=== PATIENT | female | born 1990 | race Caucasian/White ===

== ENCOUNTER 2016-06-02 12:23 | Outpatient (CLI) | payer OTHER | END 2016-06-02 12:24 | disposition home or self-care (01) | DX: D50.9 Iron deficiency anemia, unspecified (principal) ==

== ENCOUNTER 2016-09-07 09:25 | Outpatient (CLI) | payer OTHER ==
[2016-09-07 14:31] LABS: BASOPHILS # (AUTO) 0.1 10^3/uL (0.0-0.1); BASOPHILS % (AUTO) 1.4 %; EOSINOPHILS # (AUTO) 0.1 10^3/uL (0.0-0.7); EOSINOPHILS % (AUTO) 2.2 %; HCT - HEMATOCRIT 34.9 % (37.0-47.0); HGB - HEMOGLOBIN 11.5 g/dL (12.0-16.0); LYMPHOCYTES # (AUTO) 1.2 10^3/uL (1.5-3.5); LYMPHOCYTES % (AUTO) 26.8 %; MEAN CORPUSCULAR HEMOGLOBIN 27.1 pg (27.0-31.0); MEAN CORPUSCULAR VOLUME 82.3 fL (81.0-99.0); MEAN PLATELET VOLUME 9.3 fL (7.9-10.8); MONOCYTES # (AUTO) 0.3 10^3/uL (0.0-1.0); MONOCYTES % (AUTO) 7.6 %; NEUTROPHILS # (AUTO) 2.8 10^3/uL (1.5-6.6); NUCLEATED RED BLOOD CELLS AUTO 0.1 /100WBC; RED BLOOD COUNT 4.23 10^6/uL (4.20-5.40); RED CELL DISTRIBUTION WIDTH 14.1 % (12.0-15.0); UNCORRECTED WHITE BLOOD COUNT 4.5 x10^3/uL; WHITE BLOOD COUNT 4.5 x10^3/uL (4.8-10.8)
[2016-09-07 14:46] LABS: ALBUMIN/GLOBULIN RATIO 1.5 (1.0-2.2); BILIRUBIN,TOTAL 0.4 mg/dL (0.2-1.0); CALCIUM 9.7 mg/dL (8.5-10.3); CREATININE 0.7 mg/dL (0.4-1.0); POTASSIUM 4.4 mmol/L (3.5-5.0); TOTAL PROTEIN 7.4 g/dL (6.7-8.2)
== END 2016-09-07 09:26 | disposition home or self-care (01) ==
LOC: LAB.WCP 09:25
PROVIDERS: ATTEND Family Medicine
DX: R10.9 Unspecified abdominal pain (principal)
CPT/HCPCS: 36415; 80053; 85025

== ENCOUNTER 2017-06-16 08:00 | Outpatient (CLI) | payer OTHER ==
[2017-06-16 19:07] LABS: BASOPHILS # (AUTO) 0.1 10^3/uL (0.0-0.1); BASOPHILS % (AUTO) 1.3 %; EOSINOPHILS # (AUTO) 0.1 10^3/uL (0.0-0.7); EOSINOPHILS % (AUTO) 2.4 %; HGB - HEMOGLOBIN 10.5 g/dL (12.0-16.0); LYMPHOCYTES # (AUTO) 1.7 10^3/uL (1.5-3.5); MEAN CORPUSCULAR HEMOGLOBIN 27.6 pg (27.0-31.0); MEAN CORPUSCULAR HGB CONC 32.3 g/dL (32.0-36.0); MEAN CORPUSCULAR VOLUME 85.3 fL (81.0-99.0); MEAN PLATELET VOLUME 9.8 fL (7.9-10.8); MONOCYTES # (AUTO) 0.4 10^3/uL (0.0-1.0); MONOCYTES % (AUTO) 8.1 %; NEUTROPHILS # (AUTO) 3.1 10^3/uL (1.5-6.6); NEUTROPHILS % (AUTO) 56.2 %; PLT - PLATELET COUNT 244 10^3/uL (130-450); RED BLOOD COUNT 3.81 10^6/uL (4.20-5.40); WHITE BLOOD COUNT 5.4 x10^3/uL (4.8-10.8)
[2017-06-16 19:22] LABS: THYROID STIMULATING HORMONE 1.11 uIU/mL (0.34-5.60)
[2017-06-16 19:25] LABS: % IRON SATURATION 8 % (20-50); ALBUMIN 4.3 g/dL (3.2-5.5); ALBUMIN/GLOBULIN RATIO 1.6 (1.0-2.2); ALKALINE PHOSPHATASE 42 IU/L (42-121); ALT ALANINE AMINOTRANSFERASE 27 IU/L (10-60); AST ASPARTATE AMINOTRANSFERASE 28 IU/L (10-42); BILIRUBIN,TOTAL 0.4 mg/dL (0.2-1.0); BUN - BLOOD UREA NITROGEN 25 mg/dL (6-20); CALCIUM 8.9 mg/dL (8.5-10.3); CARBON DIOXIDE - CO2 25 mmol/L (21-32); CHLORIDE 102 mmol/L (101-111); CHOL/HDL RATIO 2.1 (<4.4); CHOLESTEROL 149 mg/dL; CREATININE 0.7 mg/dL (0.4-1.0); GFR - MDRD 100 (>89); GLUCOSE 80 mg/dL (70-100); HDL CHOLESTEROL 70 mg/dL; IRON 35 ug/dL (28-170); LDL CHOLESTEROL,CALCULATED 68 mg/dL; SODIUM 134 mmol/L (135-145); TOTAL IRON BINDING CAPACITY 421 ug/dL (250-450); TRANSFERRIN 301 mg/dL (192-382); VLDL CHOLESTEROL 11 mg/dL
[2017-06-16 19:29] LABS: FERRITIN 7.2 ng/mL (11.0-306.8)
== END 2017-06-16 08:01 | disposition home or self-care (01) ==
LOC: LAB.WCP 08:00
PROVIDERS: ATTEND Family Medicine
DX: Z00.00 Encounter for general adult medical examination without abnormal findings (principal); D50.9 Iron deficiency anemia, unspecified
CPT/HCPCS: 36415; 80053; 80061; 82607; 82728; 83540; 83721; 84443; 84466; 85025

== ENCOUNTER 2017-11-22 10:38 | Emergency (ER) | payer OTHER ==
[2017-11-22 11:06] LABS: BILIRUBIN,URINE NEGATIVE (NEGATIVE); GLUCOSE, URINE (UA) NEGATIVE (NEGATIVE); KETONES,URINE (UA) NEGATIVE (NEGATIVE); LEUKOCYTE ESTERASE, URINE NEGATIVE (NEGATIVE); NITRITE,URINE NEGATIVE (NEGATIVE); OCCULT BLOOD,URINE NEGATIVE (NEGATIVE); PH,URINE 6.5 PH (5.0-7.5); PROTEIN,URINE NEGATIVE (NEGATIVE); UROBILINOGEN,URINE 0.2 (NORMAL) E.U./dL (NORMAL)
[2017-11-22 11:08] LABS: CLARITY,URINE CLEAR (CLEAR); HCG UR QUAL NEGATIVE
--- NOTE | 2017-11-22 12:20 | ED Physician Documentation ---
PD HPI FEMALE - Stated complaint Stated Complaint: FEMALE - Chief complaint Chief Complaint: UTI - History obtained from History obtained from: Patient - History of Present Illness Timing - onset: Other (For almost a week she has had urinary frequency and bladder pressure without dysuria, flank pain, or nausea. No foul-smelling discharge or urine or fevers. She at the outset took a course of Macrobid and Diflucan without relief. She does not have frequent UTIs.) Review of Systems Constitutional: denies: Fever, Chills Respiratory: denies: Dyspnea, Cough GI: denies: Abdominal Pain, Nausea, Vomiting, Diarrhea PD PAST MEDICAL HISTORY - Past Medical History Past Medical History: Yes GI: Chronic diarrhea, Ulcerative colitis, Other Psych: None Musculoskeletal: None - Past Surgical History Past Surgical History: No - Present Medications Home Medications: Ambulatory Orders Medication Instructions Recorded Confirmed Metronidazole [Flagyl] 500 mg PO BID #14 tablet 11/22/17 Nitrofurantoin [Macrobid] 1 tab PO BID 11/22/17 11/22/17 - Allergies Allergies/Adverse Reactions: Allergies Allergy/AdvReac Type Severity Reaction Status Date / Time cefaclor [From Ceclor] Allergy Mild Rash Verified 11/22/17 10:50 - Social History Does the pt smoke?: No Smoking Status: Never smoker Does the pt drink ETOH?: No Does the pt have substance abuse?: No - Immunizations Immunizations are current?: Yes - POLST Patient has POLST: No PD ED PE NORMAL - Vitals Vital signs reviewed: Yes - General General: Alert and oriented X 3, No acute distress - Abdomen Abdomen: Normal bowel sounds, Soft, Non tender - Female 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 (Yessi IRONER), Other (Mild white discharge and very mild Cervicitis without cervical motion tenderness) - Neuro Neuro: Alert and oriented X 3, Normal speech - Psych Psych: Normal mood, Normal affect Results - Vitals Vitals: Vital Signs - 24 hr 11/22/17 10:47 Temperature 37.3 C Heart Rate 66 Respiratory 16 Rate Blood Pressure 119/67 O2 Saturation 100 Oxygen O2 Source Room air - Labs Labs: Microbiology 11/22/17 12:36 Wet Prep - Final Cervix Laboratory Tests 11/22/17 10:58 Urine Color YELLOW Urine Clarity CLEAR Urine pH 6.5 Ur Specific [place] 1.010 Urine Protein NEGATIVE Urine Glucose (UA) NEGATIVE Urine Ketones NEGATIVE Urine Occult Blood NEGATIVE Urine Nitrite NEGATIVE Urine Bilirubin NEGATIVE Urine Urobilinogen 0.2 (NORMAL) Ur Leukocyte Esterase NEGATIVE Ur Microscopic Review NOT INDICATED Urine Culture Comments NOT INDICATED Urine HCG, Qual NEGATIVE PD MEDICAL DECISION MAKING - Sepsis Event Vital Signs: Vital Signs - 24 hr 11/22/17 10:47 Temperature 37.3 C Heart Rate 66 Respiratory 16 Rate Blood Pressure 119/67 O2 Saturation 100 Oxygen O2 Source Room air Departure - Departure Disposition: Home, Self Care Clinical Impression: Bacterial vaginosis Condition: Good Record reviewed to determine appropriate education?: Yes Instructions: ED Vaginosis Bacterial Prescriptions: Metronidazole [Flagyl] 500 mg PO BID #14 tablet Comments: Call your doctor to arrange a follow-up appointment, make the next available appointment. In the interim, return anytime if worse or if new symptoms develop.
[2017-11-22 13:09] VITALS: BP 123/75
== END 2017-11-22 13:07 | disposition home or self-care (01) ==
LOC: ED 10:38
DX: N76.0 Acute vaginitis (principal); B96.89 Other specified bacterial agents as the cause of diseases classified elsewhere
CPT/HCPCS: 81001; 81003; 81025; 87086; 87210; 87491; 87591; 99283

== ENCOUNTER 2018-06-13 16:12 | Outpatient (CLI) | payer MEDICAID, OTHER ==
[2018-06-14 15:16] LABS: MUDS CUTOFF CONCENTRATIONS CUTOFF CONC BELOW:
[2018-06-14 16:41] LABS: AMPHETAMINE SCREEN,URINE NEGATIVE (NEGATIVE); BENZODIAZEPINES SCREEN, URINE NEGATIVE (NEGATIVE); COCAINE SCREEN URINE NEGATIVE (NEGATIVE); METHADONE SCREEN, URINE NEGATIVE (NEGATIVE); METHAMPHETAMINES SCREEN, URINE NEGATIVE (NEGATIVE); OPIATE SCREEN, URINE NEGATIVE (NEGATIVE); OXYCODONE SCREEN, URINE NEGATIVE (NEGATIVE); PROPOXYPHENE SCREEN, URINE NEGATIVE (NEGATIVE); TRICYCLIC ANTIDEPRESSANT,URINE NEGATIVE (NEGATIVE)
== END 2018-06-13 23:59 | disposition home or self-care (01) ==
LOC: LAB.R 16:12
PROVIDERS: ATTEND Nurse Practitioner Obstetrics & Gynecology
DX: Z36.9 Encounter for antenatal screening, unspecified (principal)
CPT/HCPCS: 80306

== ENCOUNTER 2018-06-15 13:44 | Outpatient (CLI) | payer MEDICAID ==
[2018-06-15 14:17] LABS: BASOPHILS % (AUTO) 0.5 %; EOSINOPHILS # (AUTO) 0.1 10^3/uL (0.0-0.7); EOSINOPHILS % (AUTO) 1.1 %; HGB - HEMOGLOBIN 12.8 g/dL (12.0-16.0); LYMPHOCYTES # (AUTO) 1.4 10^3/uL (1.5-3.5); LYMPHOCYTES % (AUTO) 19.2 %; MEAN CORPUSCULAR HEMOGLOBIN 32.1 pg (27.0-31.0); MEAN CORPUSCULAR HGB CONC 35.6 g/dL (32.0-36.0); MEAN CORPUSCULAR VOLUME 90.3 fL (81.0-99.0); MEAN PLATELET VOLUME 8.5 fL (7.9-10.8); MONOCYTES # (AUTO) 0.4 10^3/uL (0.0-1.0); MONOCYTES % (AUTO) 5.8 %; NEUTROPHILS # (AUTO) 5.4 10^3/uL (1.5-6.6); NEUTROPHILS % (AUTO) 73.4 %; PLT - PLATELET COUNT 204 10^3/uL (130-450); RED BLOOD COUNT 3.99 10^6/uL (4.20-5.40); RED CELL DISTRIBUTION WIDTH 12.2 % (12.0-15.0); WHITE BLOOD COUNT 7.3 x10^3/uL (4.8-10.8)
[2018-06-15 14:21] LABS: BILIRUBIN,URINE NEGATIVE (NEGATIVE); GLUCOSE, URINE (UA) NEGATIVE (NEGATIVE); KETONES,URINE (UA) NEGATIVE (NEGATIVE); LEUKOCYTE ESTERASE, URINE NEGATIVE (NEGATIVE); NITRITE,URINE NEGATIVE (NEGATIVE); OCCULT BLOOD,URINE NEGATIVE (NEGATIVE); PROTEIN,URINE NEGATIVE (NEGATIVE); UROBILINOGEN,URINE 0.2 (NORMAL) E.U./dL (NORMAL)
[2018-06-15 14:28] LABS: BACTERIA,URINE Rare /HPF (None Seen); RBC,URINE 0-5 /HPF (0-5); SQUAMOUS EPITHELIAL CELL,UR RARE Squamous (<= Few)
[2018-06-15 14:29] LABS: CLARITY,URINE CLEAR (CLEAR)
[2018-06-16 12:41] LABS: HEPATITIS B SURFACE ANTIGEN NON-REACTIVE (NON-REACTIVE)
[2018-06-16 12:51] LABS: HEPATITIS C ANTIBODY NON-REACTIVE (NON-REACTIVE)
[2018-06-16 15:06] LABS: HIV AG/AB 4TH GEN NON-REACTIVE (NON-REACTIVE)
== END 2018-06-15 13:45 | disposition home or self-care (01) ==
LOC: LAB 13:44
PROVIDERS: ATTEND Nurse Practitioner Obstetrics & Gynecology
DX: Z36.9 Encounter for antenatal screening, unspecified (principal)
CPT/HCPCS: 36415; 81001; 81599; 85025; 86592; 86762; 86803; 86850; 86900; 86901; 87086; 87340; 87389

== ENCOUNTER 2018-07-10 21:08 | Emergency (ER) | payer MEDICAID ==
[2018-07-10 21:25] LABS: BILIRUBIN,URINE NEGATIVE (NEGATIVE); CLARITY,URINE CLEAR (CLEAR); GLUCOSE, URINE (UA) NEGATIVE (NEGATIVE); KETONES,URINE (UA) NEGATIVE (NEGATIVE); LEUKOCYTE ESTERASE, URINE NEGATIVE (NEGATIVE); NITRITE,URINE NEGATIVE (NEGATIVE); OCCULT BLOOD,URINE NEGATIVE (NEGATIVE); PROTEIN,URINE NEGATIVE (NEGATIVE); UROBILINOGEN,URINE 0.2 (NORMAL) E.U./dL (NORMAL)
--- NOTE | 2018-07-10 22:15 | ED Physician Documentation ---
PD HPI ABD PAIN - Stated complaint Stated Complaint: 15 WK PREG/ ABD PX - Chief complaint Chief Complaint: Abd Pain - History obtained from History obtained from: Patient, Family - History of Present Illness Timing - onset: Enter time (1700), Today Timing - duration: Hours Timing - details: Abrupt onset, Still present in ED Pain level max: 9 Pain level now: 4 Quality: Sharp, Pain Location: All over / everywhere Improved by: Other (time) Worsened by: Eating Associated symptoms: Diarrhea, Hematochezia. No: Fever, Nausea, Vomiting, Hematemesis Similar symptoms before: Diagnosis (gallstones) Recently seen: Clinic - Additional information Additional information: 28-year-old female with a history of intermittent ulcerative colitis who is 15 weeks has developed acute mid abdominal pain that was sharp and severe approximate 5 PM today. She has now had near complete resolution of her pain. She indicates that her ulcerative colitis is active now and that she has never had pains like this with her ulcerative colitis. She does have a history of a prior episode of similar pain about 8 years ago and at that time she was diagnosed with gallstones. She states that about 1 month ago she had a similar episode lasting several hours in the middle of the night. She denies any acholic stool in fact she is having some blood in her diarrhea. She states that as far as her ulcerative colitis is concerned she has had flares of this about every 2 years that have spontaneously resolved after colonoscopy. She states that previously medications were not effective in controlling symptoms. Review of Systems Constitutional: denies: Fever, Chills, Myalgias Eyes: denies: Decreased vision Ears: denies: Ear pain Nose: denies: Rhinorrhea / runny nose, Congestion Throat: denies: Sore throat Cardiac: denies: Chest pain / pressure, Palpitations Respiratory: denies: Dyspnea, Cough GI: reports: Abdominal Pain, Diarrhea, Bloody / black stool. denies: Nausea, Vomiting : denies: Dysuria, Frequency Skin: denies: Rash Musculoskeletal: denies: Neck pain, Back pain, Extremity pain Neurologic: denies: Generalized weakness, Focal weakness, Numbness PD PAST MEDICAL HISTORY - Past Medical History Past Medical History: Yes GI: Chronic diarrhea, Ulcerative colitis, Other Psych: None Musculoskeletal: None - Past Surgical History Past Surgical History: No - Present Medications Home Medications: Ambulatory Orders Medication Instructions Recorded Confirmed Pnv No.122/Iron/Folic Acid 1 tab PO DAILY 07/10/18 07/10/18 [ Multi Tablet] Sucralfate [Carafate] 1 gm PO ACHS #60 tablet 07/11/18 - Allergies Allergies/Adverse Reactions: Allergies Allergy/AdvReac Type Severity Reaction Status Date / Time cefaclor [From [facility]] Allergy Mild Rash Verified 07/10/18 21:13 - Social History Does the pt smoke?: No Smoking Status: Never smoker Does the pt drink ETOH?: No Does the pt have substance abuse?: No - Immunizations Immunizations are current?: Yes - POLST Patient has POLST: No PD ED PE NORMAL - Vitals Vital signs reviewed: Yes (normal ) - General General: Alert and oriented X 3, No acute distress, Well developed/nourished - HEENT HEENT: Atraumatic, PERRL, EOMI - Neck Neck: Supple, no meningeal sign, No bony TTP - Cardiac Cardiac: RRR, No murmur - Respiratory Respiratory: No respiratory distress, Clear bilaterally - Abdomen Abdomen: Soft, Other (mild epigastric and RUQ pain to palpation ) - Back Back: No CVA TTP, No spinal TTP - Derm Derm: Normal color, Warm and dry, No rash - Extremities Extremities: No deformity, No edema - Neuro Neuro: Alert and oriented X 3, dragsaw operator 2-12 intact, No motor deficit, No sensory deficit, Normal speech Eye Opening: Spontaneous Motor: Obeys Commands Verbal: Oriented GCS Score: 15 - Psych Psych: Normal mood, Normal affect Results - Vitals Vitals: Vital Signs - 24 hr 07/10/18 07/10/18 07/10/18 21:11 21:12 23:38 Temperature 37.5 C 37.5 C Heart Rate 84 84 75 Respiratory 16 16 18 Rate Blood Pressure 129/74 129/74 123/69 O2 Saturation 100 100 98 Oxygen O2 Source Room air - Labs Labs: Laboratory Tests 07/10/18 21:17 Urine Color YELLOW Urine Clarity CLEAR Urine pH 8.0 H Ur Specific [place] <=1.005 Urine Protein NEGATIVE Urine Glucose (UA) NEGATIVE Urine Ketones NEGATIVE Urine Occult Blood NEGATIVE Urine Nitrite NEGATIVE Urine Bilirubin NEGATIVE Urine Urobilinogen 0.2 (NORMAL) Ur Leukocyte Esterase NEGATIVE Ur Microscopic Review NOT INDICATED Urine Culture Comments NOT INDICATED - Rads (name of study) ultrasound abd lmt Radiology: Prelim report reviewed (Impression: Normal. No cholelithiasis or cholecystitis.), EMP read indepedently, See rad report Procedures - Bedside sono Bedside sono by EMP: With use of bedside ultrasound the uterus is imaged and there is a 16-week fetus with a heart rate of 144 who is active and appears normal. The gallbladder is examined it is sonographically mildly tender the wall is not thickened there is a solitary stone in the fundus and no pericholecystic fluid. PD MEDICAL DECISION MAKING - ED course Complexity details: reviewed old records, reviewed results, re-evaluated patient, considered differential, d/w patient, d/w family ED course: 28-year-old female with a history of ulcerative colitis and is had an episode of abdominal pain lasting approximately 5 hours that is now resolved and on bedside exam the patient has a tender gallbladder there is mild and no evidence of stone on formal ultrasound.I suspect the patient's course does have something to do with her gallbladder and her fetus appears normal. The patient has had resolution of her symptoms while she was in the emergency department she is had recurrence of her symptoms now and a GI cocktail is administered.She has complete and sustained relief of her symptoms. On further history she indicates that she has been taking some Zantac regularly twice a day with her because of excessive heartburn. She did not take her Zantac today. Departure - Departure Disposition: 01 Home, Self Care Clinical Impression: Gastritis Qualifiers: Gastritis type: unspecified gastritis Chronicity: acute Gastritis bleeding: without bleeding Qualified Code(s): K29.00 - Acute gastritis without bleeding Instructions: ED PUD Vs Gastritis Follow[facility] [Provider Group] Prescriptions: Sucralfate [Carafate] 1 gm PO ACHS #60 tablet Comments: Today it appears the pain you expresses related to your stomach and the recommendation is that you take your Zantac regularly and for the next week take the Carafate as prescribed.
--- NOTE | 2018-07-10 23:04 | Ultrasound Report ---
Reason: RUQ pain ? stone on bedside Procedure Date: 07/10/2018 Accession Number: [id number] / [id number] Procedure: US - Abdomen Limited CPT Code: FULL RESULT: EXAM: ABDOMEN ULTRASOUND LIMITED, RUQ EXAM DATE: 07/10/2018 10:28 PM. CLINICAL HISTORY: RUQ pain ? stone on bedside. COMPARISON: None. TECHNIQUE: Real-time scanning was performed with static images obtained. FINDINGS: Liver: Normal in size and echotexture. 15 cm. Main portal vein flow: Hepatopetal. Gallbladder: Normal. No stones, wall thickening, or sonographic Zhu's sign. Biliary System: CBD measures 3 mm. No intrahepatic or extrahepatic ductal dilatation. Other: No right hydronephrosis. No free fluid. IMPRESSION: Normal. No cholelithiasis or cholecystitis. RADIA
[2018-07-10] MEDS ORDERED: LIDOCAINE VISCOUS 2% 15 ML UDC MM STA (23:34)
[2018-07-10] MEDS ORDERED: MAG HYDROX/AL HYDROX/SIMETH 30 ML UDC PO STA (23:35)
[2018-07-10 23:39] VITALS: BP 123/69
[2018-07-11] MEDS ORDERED: SUCRALFATE 1 GM/10 ML UDC PO STA (00:16)
== END 2018-07-11 00:21 | disposition home or self-care (01) ==
LOC: ED 21:08
DX: O99.612 Diseases of the digestive system complicating pregnancy, second trimester (principal); K92.89 Other specified diseases of the digestive system; K29.00 Acute gastritis without bleeding; Z3A.15 15 weeks gestation of pregnancy
CPT/HCPCS: 76705; 81003; 99283; 99284; A9270; 81001; 87086

== ENCOUNTER 2018-09-26 10:07 | Outpatient (CLI) | payer OTHER, MEDICAID | END 2018-09-26 10:08 | disposition home or self-care (01) | LOC: DI 10:07 | PROVIDERS: ATTEND Nurse Practitioner Obstetrics & Gynecology | DX: R01.0 Benign and innocent cardiac murmurs (principal); K51.30 Ulcerative (chronic) rectosigmoiditis without complications; Z36.89 Encounter for other specified antenatal screening; I34.0 Nonrheumatic mitral (valve) insufficiency | CPT/HCPCS: 93306 ==

== ENCOUNTER 2018-11-28 08:00 | Outpatient (CLI) | payer OTHER, MEDICAID ==
[2018-11-28 21:31] LABS: TRICHOMONAS VAGINALIS DNA NEGATIVE (NEGATIVE)
== END 2018-11-28 23:59 | disposition home or self-care (01) ==
LOC: LAB.R 08:00
PROVIDERS: ATTEND Obstetrics & Gynecology
DX: Z36.89 Encounter for other specified antenatal screening (principal)
CPT/HCPCS: 87491; 87591; 87661; 87797

== ENCOUNTER 2018-12-27 10:19 | Inpatient (IN) | payer OTHER, MEDICAID ==
[2018-12-27 11:09] LABS: RUPTURE OF MEMBRANES PLUS POSITIVE (NEGATIVE)
[2018-12-27] MEDS ORDERED: SODIUM CHLORIDE FLUSH 0.9% 10 ML SYRINGE IVP PRN (11:21)
[2018-12-27] MEDS ORDERED: miSOPROStol 200 MCG TABLET ONE (11:36)
[2018-12-27] MEDS ORDERED: LIDOCAINE-MPF 1% 30 ML VIAL ONE (11:36)
[2018-12-27] MEDS ORDERED: OXYTOCIN/DEXTROSE 5 % 30 UNIT/500 ML BAG IV ONE (11:37)
[2018-12-27] MEDS ORDERED: miSOPROStol 100 MCG TABLET BC SCH (12:00)
[2018-12-27 12:24] LABS: BASOPHILS # (AUTO) 0.1 10^3/uL (0.0-0.1); BASOPHILS % (AUTO) 0.6 %; EOSINOPHILS # (AUTO) 0.1 10^3/uL (0.0-0.7); EOSINOPHILS % (AUTO) 0.5 %; HGB - HEMOGLOBIN 14.7 g/dL (12.0-16.0); LYMPHOCYTES # (AUTO) 1.2 10^3/uL (1.5-3.5); MEAN CORPUSCULAR HEMOGLOBIN 31.2 pg (27.0-31.0); MEAN CORPUSCULAR HGB CONC 35.1 g/dL (32.0-36.0); MEAN PLATELET VOLUME 11.2 fL (7.9-10.8); MONOCYTES # (AUTO) 0.6 10^3/uL (0.0-1.0); MONOCYTES % (AUTO) 6.1 %; NEUTROPHILS # (AUTO) 7.9 10^3/uL (1.5-6.6); NEUTROPHILS % (AUTO) 80.4 %; PLT - PLATELET COUNT 188 10^3/uL (130-450); RED BLOOD COUNT 4.71 10^6/uL (4.20-5.40); RED CELL DISTRIBUTION WIDTH 13.9 % (12.0-15.0); WHITE BLOOD COUNT 9.9 x10^3/uL (4.8-10.8)
--- NOTE | 2018-12-27 12:43 | HISTORY & PHYSICAL EXAMINATION ---
Admit History - Visit Reason Visit Reason: Membranes rupture - : 1 Parity: 0 Premature: 0 Ectopic: 0 : 0 Care: positive: [facility] Risk/History: positive: Premature rupture membrane, Prolonged rupture membrane Complications This : positive: None Smoking Status: Never smoker - Mother's Labs Mother's Blood Type: positive: O Mother's RH: positive: Positive GBS: positive: Group B Step Negative Rubella Status: positive: Immune Meds/Allgy - Home Medications Home Medications: Ambulatory Orders Medication Instructions Recorded Confirmed Pnv No.122/Iron/Folic Acid 1 tab PO DAILY 07/10/18 07/10/18 [ Multi Tablet] Sucralfate [Carafate] 1 gm PO ACHS #60 tablet 07/11/18 - Allergies Allergies/Adverse Reactions: Allergies Allergy/AdvReac Type Severity Reaction Status Date / Time cefaclor [From Ceclor] Allergy Mild Rash Verified 07/10/18 21:13 Review of Systems - Constitutional Constitutional: denies: Fatigue, Fever, Chills, Malaise - Eyes Eyes: denies: Blurred vision, Spots in vision, Vision loss, Dipolpia - Cardiovascular Cariovascular: denies: Irregular heart rate, Palpitations, Chest pain, Edema - Respiratory Respiratory: denies: SOB at rest - Gastrointestinal Gastrointestinal: reports: Change in bowel habits - Integumentary Integumentary: denies: Rash, Pruritis - Neurological Neurological: denies: Headache - Hematologic/Lymphatic Hematologic/Lymphatic: denies: Anemia Physical - Abdominal Exam Vital Signs: Temp Pulse Resp BP Pulse Ox 36.8 C 73 16 134/80 H 99 12/27/18 10:24 12/27/18 10:41 12/27/18 10:41 12/27/18 10:41 12/27/18 10:41 Contraction Frequency (min/apart): intermitten Contraction Intensity: positive: Mild Uterine Resting Tone: positive: Soft - Monitoring Heart Rate Baseline: 130 Strip Review: positive: Category I - Presentation Presentation: positive: Vertex - Vaginal Exam Membranes: positive: Membranes intact Dilation (in cm): fingertip Effacement (%): 50 Station: positive: -3 Cervical Position: positive: Posterior - Speculum Exam Speculum Exam Performed: positive: Yes Findings: positive: Fern, Nitrazine, Other Plan for Labor - Plan For Labor I expect patient to be DC'd or transferred within 96 hours.: Yes Plan for Labor: HPI: This 28yo @ 39.1wks gestation by LMP c/w first trimester ultrasound presented for regularly scheduled visit at [facility] with c/o vaginal leakage of fluid and light pink spotting. She denies contractions at that time but did note intermittent contractions yesterday. She reports +FM. She reports vaginal leakage of clear fluid began around 12pm yesterday afternoon. She noticed a pink tinge to the fluid early this morning around 12am. Neg pooling, neg ferning, + nitirize in the office. ROM+ positive. She denies MILIAN, visual disturbances, RUQ or epigastric pain. She denies fever, chills, or body aches. She has been a patient of [facility] through the duration of her which has been complicated only by her diagnosis of ulcerative colotis and proctitis. She had a flare in early preg quin[place] but has been stable since that time. She was admitted to [facility] for active management. Dating criteria: LMP 03/28/2018 Initial ultrasound 8.2wks c/w LMP dating Serial exams: agree OB History: G1: Current Medications: PNV; Ranitidine Allergies: Ceclor (CRITICAL) PMHx: Heart murmur; ulcerative proctosigmoiditis; overactive bladder; ulcerative colitis; IBD Surgical Hx: [place] teeth; colonoscopy x 4 Social Hx: Never smoker, no ETOH or IVDA. 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 FAS 08/23/2018: WNL, posterior placenta, no previa. Size c/w dating. Normal NINO. Physical Exam: Heart RRR w/o M/G/R Lungs CTAB Abdomen gravid, soft, nontender SVE fingertip/50/-3, posterior, vertex SROM x 25 hours - afebrile FHR baseline 120, moderate variability, + accels, no decels Contractions palpate mild intermittently No evidence of proctitis flare present Bilateral LE's no edema Mood is good - supportive at the bedside. Assessment: 28yo @ 39.1wks gestation by LMP c/w 8.2wk U/S SROM x 25 hours - afebrile Cervical ripening initiated Plan: Pre-induction cervical ripening with misoprostol 50mcg BC q 4 hours Continuous monitoring Encouraged ambulation and frequent position changes Jacuzzi PRN. Nitrous oxide PRN Epidural per maternal request. Anticipate spontaneous vaginal delivery.
[2018-12-27] MEDS: miSOPROStol 100 MCG TABLET BC SCH ×3 (16:03→21:50)
[2018-12-27] MEDS ORDERED: diphenhydrAMINE 25 MG CAPSULE PO PRN (16:42)
--- NOTE | 2018-12-27 16:48 | PROVIDER PROGRESS NOTE ---
Labor Progress Note - Uterine Monitoring Uterine Monitoring Mode: positive: External toco Contraction Frequency (min/apart): 4-5 Contraction Intensity: positive: Mild to moderate Uterine Resting Tone: positive: Soft - Monitoring Monitor Mode: positive: External ultrasound Heart Rate Baseline: 120 Heart Rate Variability: positive: Moderate (6-25 bmp) Accelerations: positive: Present, 15x15 Decelerations: positive: None Strip Review: positive: Category I - Labor Progress Note Labor Progress Note/Additional Text: S: Patient sitting up in the chair at the bedside and feeling increased cramping with second dosage of misoprostol. Partner Augustin supportive at the bedside. She is hesitant to take any medications to sleep at night but is open to taking a benadryl which routinely helps her sleep at home. Mood is good. O: FHR baseline 120s, moderate variability, + accels, no decels SVE deferred SROM x 30 hours - afebrile A: 28yo @ 39.1wks gestation by LMP c/w first trimester ultrasound S/p 2 doses of misoprostol - initial dose 25mcg, second dose 50mcg FHR Category I P: Continuous monitoring Continue cervical ripening with misoprostol 50mcg q 4 hours Consider brothers cervical ripening bulb with next SVE Encouraged ambulation and position changes Reviewed patient status and plan of care with distribution a class lineman physician who is in agreement with above plan. Anticipate spontaneous vaginal delivery
[2018-12-27] MEDS ORDERED: SODIUM CHLORIDE FLUSH 0.9% 10 ML SYRINGE IVP SCH (17:00)
[2018-12-27] MEDS: ONDANSETRON 4 MG/2 ML VIAL IVP PRN (20:44)
[2018-12-27] MEDS ORDERED: fentaNYL 100 MCG/2 ML VIAL IVP PRN (21:47)
--- NOTE | 2018-12-27 21:55 | PROVIDER PROGRESS NOTE ---
Labor Progress Note - Uterine Monitoring Uterine Monitoring Mode: positive: External toco Contraction Frequency (min/apart): 1-3 Contraction Intensity: positive: Strong Uterine Resting Tone: positive: Soft - Monitoring Monitor Mode: positive: External ultrasound Heart Rate Baseline: 130 Heart Rate Variability: positive: Moderate (6-25 bmp) Accelerations: positive: Present, 15x15 Decelerations: positive: None Strip Review: positive: Category I - Vaginal Exam Dilation (in cm): 2 Effacement (%): 90 Station: 0 Cervical Position: Midposition - Labor Progress Note Labor Progress Note/Additional Text: S: Pt crying and breathing through contractions and requesting medication for pain management. She is opposed to an epidural and nitrous oxide for pain management. She has tried the jacuzzi on two separate occasions with minimal relief. At this time she requests IV pain medication for management. and night time babysitter supportive at the bedside. O: FHR baseline 130s, moderate variability, + accels, no decels Contractions palpate strong every 1-3 min with soft resting tone. SVE 2/90/0, vertex A: 28yo @ 39.2wks gestation. FHR category I Early labor AROM x 34 hours - afebrile P: Continuous monitoring Continue active management Fentanyl via IV now Epidural per maternal request Anticipate spontaneous vaginal delivery.
[2018-12-27] MEDS: LACTATED RINGERS 1,000 ML IV SCH (22:13)
[2018-12-27] MEDS ORDERED: fentaNYL 100 MCG/2 ML VIAL ONE (22:44)
[2018-12-27] MEDS ORDERED: ROPIVACAINE 0.2% 200 MG/100 ML BAG EP ONE (22:45)
[2018-12-27] MEDS ORDERED: NALBUPHINE 10 MG/ML AMP IVP PRN (23:25)
[2018-12-27] MEDS ORDERED: LACTATED RINGERS 500 ML IV ONE (23:25)
[2018-12-27] MEDS ORDERED: diphenhydrAMINE INJ 50 MG/ML VIAL IVP PRN (23:25)
[2018-12-27] MEDS ORDERED: ePHEDrine 50 MG/ML VIAL IVP PRN (23:25)
[2018-12-27] MEDS ORDERED: NALOXONE 0.4 MG/ML VIAL IVP PRN (23:25)
[2018-12-27] MEDS ORDERED: ROPIVACAINE 0.2% 200 MG/100 ML BAG EP PRN (23:25)
[2018-12-27] MEDS ORDERED: METOCLOPRAMIDE 10 MG/2 ML VIAL IVP PRN (23:25)
[2018-12-27] MEDS ORDERED: ONDANSETRON 4 MG/2 ML VIAL IVP PRN (23:25)
--- NOTE | 2018-12-27 23:25 | ANESTHESIA ---
Pre-Anesthesia VS, & Labs - Diagnosis gravid uterus - Procedure labor epidural Vital Signs: Temp Pulse Resp BP Pulse Ox 36.8 C 73 16 134/80 H 99 12/27/18 10:24 12/27/18 10:41 12/27/18 10:41 12/27/18 10:41 12/27/18 10:41 Height 5 ft 6 in Weight (kg) 77.111 kg Body Mass Index 21.7 - Is Patient ?: Yes - Lab Results Current Lab Results: Laboratory Tests 12/27/18 12:15: WBC 9.9, RBC 4.71, Hgb 14.7, Hct 41.9, MCV 89.0, MCH 31.2 H, MCHC 35.1, RDW 13.9, Plt Count 188, MPV 11.2 H, Neut # (Auto) 7.9 H, Lymph # (Auto) 1.2 L, [place] # (Auto) 0.6, Eos # (Auto) 0.1, Baso # (Auto) 0.1, Absolute Nucleated RBC 0.00, Nucleated RBC % 0.0 Fish Bones: 12/27/18 12:15 Home Medications and Allergies Active Medications Diphenhydramine HCl (Benadryl) 25 mg PO QPM PRN PRN Reason: Insomnia Fentanyl (Fentanyl) 50 mcg IVP Q1HR PRN PRN Reason: PAIN Last Admin: 12/27/18 22:01 Dose: 50 mcg Lactated Ringer's (Lr) 1,000 mls @ 150 mls/hr IV .Q6H40M [facility] Last Admin: 12/27/18 22:13 Dose: 999 mls/hr Misoprostol (Cytotec) 50 mcg BC Q4H [facility] Last Admin: 12/27/18 12:22 Dose: 25 mcg Misoprostol (Cytotec) 25 mcg BC Q4H [facility] Last Admin: 12/27/18 21:50 Dose: Not Given Ondansetron HCl (Zofran Inj) 4 mg IVP Q4HR PRN PRN Reason: Nausea / Vomiting Last Admin: 12/27/18 20:44 Dose: 4 mg Sodium Chloride (Normal Saline Flush 0.9%) 10 ml IVP PRN PRN PRN Reason: NEEDED PER PROVIDER ORDERS Sodium Chloride (Normal Saline Flush 0.9%) 10 ml IVP 0100,0900,1700 JODIE Pnv No.122/Iron/Folic Acid [ Multi Tablet] 1 tab PO DAILY 07/10/18 Allergies/Adverse Reactions: Allergies Allergy/AdvReac Type Severity Reaction Status Date / Time cefaclor [From [facility]] Allergy Mild Rash Verified 07/10/18 21:13 Anes History & Medical History - Anesthetic History Anesthesia Complications: reports: No previous complications - Medical History Cardiovascular: reports: Murmur Pulmonary: reports: None Gastrointestinal: reports: Chronic diarrhea, Ulcerative colitis, Other Musculoskeletal: reports: None Smoking Status: Never smoker - Obstetrical History : 1 Parity: 0 Events: positive: Premature rupture membrane, Prolonged rupture membrane Complications: positive: None Exam General: Alert, Oriented x3 Dental: WNL Mouth Openin Fingerbreadth Neck Mobility: Normal Mallampati classification: II Thyromental Distance: 4-6 cm Respiratory: Lungs clear Cardiovascular: Regular rate Plan Anesthesia Type: Epidural Consent for Procedure(s) Verified and Reviewed: Yes Code Status: Attempt Resuscitation ASA classification: 2-Mild systemic disease Is this case an emergency?: No
[2018-12-28] MEDS: ONDANSETRON 4 MG/2 ML VIAL IVP PRN (03:38)
[2018-12-28] MEDS: LACTATED RINGERS 1,000 ML IV SCH (03:42)
[2018-12-28] MEDS ORDERED: OXYTOCIN/DEXTROSE 5 % 30 UNIT/500 ML BAG IV ONE (03:55)
[2018-12-28] MEDS ORDERED: LIDOCAINE 1%-EPI 1:100000 20 ML MDV ONE (06:24)
--- NOTE | 2018-12-28 06:50 | DELIVERY NOTE ---
Delivery Note - Delivery Comments (Free Text/Narrative) Delivery Comments (Free Text/Narrative): I was called in by the nurse bilingual administrative assistant to evaluate the patient for a possible vacuum delivery. The patient has been followed by the bilingual administrative assistant and had been brought in for an induction of labor.She had been pushing since approximately 03 1800 hrs. that brought the fetus down to a +2 to +3 station but could not push the baby out the rest of the way. Upon arrival it was obvious that the patient was quite fatigued at this point time.We discussed the risk, benefits, alternatives and complications of a vacuum delivery. Questions encouraged and answered, she understood and verbal consent was given.I [place] vacuum was then placed onto the head. The fetus was noted to be at approximately a +2 to +3 station. There was a large It.The head appeared to be KARINA.The vacuum was applied at approximately 06 26 at hours.With the first contraction there was a pop-off.The vacuum was then replaced and over the next 2 contractions she delivered a viable male over a first-degree perineal laceration. The had Apgars of 9 and 9 at 1 and 5 minutes respectively. Upon full delivery the the oropharynx and nasopharynx were aspirated with a bulb suction since the had a large amount of secretions in his posterior pharynx. The was crying lustily and moving all 4 limbs.The cord was somewhat short and therefore the was held for 1 minute and then the cord doubly clamped. It was then divided by the father of the baby. At this point time then the was passed off to the mother and placed on her chest. A sample of the cord blood was now obtained and sent for evaluation. At this point Aliya Bay CNM took over the rest of the delivery of the placenta.She also will do the repair.She will compile the full delivery report.
[2018-12-28] MEDS ORDERED: HYDROCORTISONE 1% CREAM 28 GM TUBE PR PRN (07:09)
[2018-12-28] MEDS ORDERED: WITCH HAZEL/GLYCERIN 1 PAD TOP PRN (07:09)
--- NOTE | 2018-12-28 07:09 | DELIVERY NOTE ---
Delivery Note - Labor Labor: positive: Other - Infant Delivery Method Delivery Method: positive: Vacuum assist - Cervical Ripening Method Cervical Ripening Method: positive: Misoprostil - Presentation Presentation: positive: Vertex - Nuchal Cord Nuchal Cord: positive: None - Amniotic Fluid Description Amniotic Fluid Description: positive: Clear - Vacuum Use Indication for Vacuum Use: positive: Prolonged 2nd stage - Episiotomy Type Episiotomy Type: positive: None - Laceration Laceration: positive: 1st degree - Suture Suture Type: positive: Vicryl Suture Size: positive: 2-0 - Delivery Outcome Delivery Outcome: positive: Livebirth - [place]: positive: Placed in direct skin contact with mother, Bulb syringe, Stimulated, Warmed, [place] used [place] sex: positive: Male - Cord Cord: positive: 3 vessels - Placenta Placenta: positive: Intact, Spontaneous - Estimated Blood Loss Estimated Blood Loss (in cc): 350 - Post Delivery Events Post Delivery Events: positive: No post delivery events - Delivery Comments (Free Text/Narrative) Delivery Comments (Free Text/Narrative): Labor: this 28yo @ 39.3wks gestation by LMP c/w first trimester ultrasound presented on 12/27/2018 at approximately 1000 after being directed from her routine visit for evaluation for SROM secondary to vaginal leakage of fluid with onset 12/26/2018 at 1200. Cervix was fingertip/50/-3, posterior, vertex. ROM+ positive and patient continued to leak clear amniotic fluid. Pre- induction cervical ripening with misoprostol administered x 3 total doses and patient progressed to spontaneously contraction. Epidural per maternal request. Normal labor course. FHR pattern demonstrated Category I pattern throughout labor. Patient progressed to c/c/+1 on 12/28/2018 at 0330. Maternal pushing effort was minimal throughout the course of the second stage and Dr. Flores, salesperson stereo equipment physician was notified at 0557 and his presence was requested at the bedside secondary to minimal maternal pushing effort and little decent. Physician present at the bedside at 0620 and patient was evaluated for vacuum assisted vaginal delivery. : (see physician note). VAVD of viable male infant at 0631 on 12/28/2018. No nuchal cord. The umbilical cord was doubly clamped by physician and cut by FOB. The was placed on maternal abdomen, stimulated, dried, and placed skin to skin. 's 9/9 at 1 and 5 min respectively. Pitocin administered via IV for hemostasis. Cord blood was obtained. 3VC. Placenta delivered spontaneously and intact @ 0636. Cord blood was obtained. EBL 350mL. Uterine fundus firm and there is no excessive bleeding. The perineum, vagina, and cervix were inspected and found to have first degree vaginal laceration which was repaired in standard fashion under sterile conditions. Vaginal examination following repair was done. Tissues well approximated. initiated. Family bonding well. Both mother and baby were left in stable condition.
[2018-12-28] MEDS: IBUPROFEN 800 MG TABLET PO SCH ×3 (08:38→20:19)
[2018-12-28] MEDS: ACETAMINOPHEN 500 MG TABLET PO SCH ×2 (08:38→17:22)
[2018-12-28] MEDS: DOCUSATE SODIUM 100 MG CAPSULE PO SCH ×2 (11:56→23:03)
[2018-12-29] MEDS: ACETAMINOPHEN 500 MG TABLET PO SCH ×3 (01:42→17:42)
[2018-12-29] MEDS: IBUPROFEN 800 MG TABLET PO SCH ×4 (01:42→23:30)
--- NOTE | 2018-12-29 10:10 | PROVIDER PROGRESS NOTE ---
Subjective - Subjective Subjective: S: Bonding well with baby. with use of nipple shield with little difficulty. Pain well controlled with oral medications. Bleeding decreased and is light. O: BP 119/66, T 37.6, HR 67, RR 16 Heart RRR w/o M/G/R, Lungs CTAB, abdomen soft and nontender with fundus firm at U-2, bilateral LE's no edema. A: 28yo -->P1 PPD#1 s/p VAVD of viable male P: Continue routine pp care and medications. Evaluate for discharge home tomorrow. Objective - Vital Signs/Intake & Output Vital Signs: Vital Signs x48h Temp Pulse Resp BP Pulse Ox 12/29/18 08:20 97.9 C H 67 16 119/66 100 12/29/18 05:18 36.7 C 65 16 122/72 100 Intake & Output: Intake & Output 12/26/18 12/27/18 12/28/18 12/29/18 23:59 23:59 23:59 23:59 Intake Total 2720 800 Output Total 450 Balance 2720 350 - Lab Results Fish Bones: 12/27/18 12:15
[2018-12-29] MEDS: DOCUSATE SODIUM 100 MG CAPSULE PO SCH ×2 (11:46→23:30)
[2018-12-30] MEDS: ACETAMINOPHEN 500 MG TABLET PO SCH ×2 (03:36→11:08)
[2018-12-30] MEDS: IBUPROFEN 800 MG TABLET PO SCH ×2 (06:01→11:09)
--- NOTE | 2018-12-30 07:28 | Discharge Plan ---
Discharge Plan Problem Reviewed?: Yes Disposition: Home, Self Care Condition: Good Diet: Regular Activity Restrictions: No Restrictions Shower Restrictions: No Driving Restrictions: No Weight Bearing: Full Weight No Smoking: If you smoke, Please STOP! Call for help. Follow-up with: Aliya Bay CNM, ARNP [Provider Admit Priv/Credential] -
--- NOTE | 2018-12-30 07:46 | PROVIDER PROGRESS NOTE ---
Subjective - Subjective Subjective: FINAL PROGRESS NOTE: S: Bonding well with baby. with little difficulty when using the nipple shield. Bleeding decreased and is light. Pain well controlled with oral medications. Partner supportive at the bedside. O: BP 126/67, T 36.7, HR 68, RR 16 HEart RRR w/o M/G/R, lungs CTAB, abdomen soft and nontender with fundus firm at U-2. Bilateral LE's no edema. A: 28yo -->P1 PPD#2 s/p TSVD of viable male P: Reviewed pp self care and warning s/sx. Advised continuing PNV while . Continue OTC ibuprofen and tylenol for pain managment. F/u at [facility] in 1 week for support visit and in 3 weeks for routine pp visit or sooner PRN. Pt verbalized understanding and agrees to above plan. Denies further questions or concerns at this time. Objective - Vital Signs/Intake & Output Vital Signs: Vital Signs x48h Temp Pulse Resp BP Pulse Ox 12/30/18 03:15 36.7 C 68 16 126/67 100 Intake & Output: Intake & Output 12/27/18 12/28/18 12/29/18 12/30/18 23:59 23:59 23:59 23:59 Intake Total 2720 800 Output Total 450 Balance 2720 350 - Lab Results Fish Bones: 12/27/18 12:15
--- NOTE | 2018-12-30 08:07 | DISCHARGE SUMMARY ---
Physician: JOYA Churchill DATE OF ADMISSION: 12/27/2018 DATE OF DISCHARGE: 12/30/2018 DIAGNOSES ON ADMISSION 1. A 28-year-old G1, P0, at 39 and 1 week's gestation. 2. Prolonged rupture of membranes. DIAGNOSES ON DISCHARGE 1. A 28-year-old G1, P1-0-0-1, status post vacuum-assisted vaginal delivery on 12/28/2018. 2. Normal recovery. HISTORY OF PRESENT ILLNESS: She is a patient of [facility] who presented on 019 with complaints of vaginal leakage of fluid. Her cervix was noted to be fingertip, 50% effaced, minus 3 station, posterior and vertex position. ROM plus was collected and positive. Preinduction c ervical ripening with misoprostol administered x3 total doses and the patient progressed to spontaneo usly contract. Epidural per maternal request. Normal labor course. She progressed to complete, com plete +1 with minimal maternal pushing efforts through the course of the second stage. Attending ashley wilkinson was notified and presents requested at the bedside secondary to minimal pushing effort and lit tle descent. Physician presented at the bedside and evaluated for a vacuum-assisted vaginal de livery. Vacuum-assisted vaginal delivery of a viable male at 0631 on 12/28/2018. Apgars were 9 and 9 at 1 and 5 minutes respectively. EBL 350 mL. The perineum, vagina and cervix were inspected and found to have first-degree vaginal laceration, which was repaired in standard fashion under ster ile conditions. She has been doing well in her course. She is ambulating and tolerating a regular diet. She is urinating without difficulty and her lochia is normal. Her pain is well controlled with oral medications. She will be discharged home today on day #2 with instructions to continue he r vitamin while . In addition, she has been given instructions to continue ibu profen and Tylenol [id number] as needed for pain management. She intends to followup with maame canales at [facility] in 1 week for support visit if needed and in 3 weeks for routine visit. She has been given precautions to call if she has any worsening fevers, ch ills, abdominal pain, increased bleeding or foul-smelling vaginal lochia. TD: 12/30/2018 07:52
[2018-12-30 09:45] VITALS: BP 119/72
[2018-12-30] MEDS: DOCUSATE SODIUM 100 MG CAPSULE PO SCH (11:08)
== END 2018-12-30 11:15 | disposition home or self-care (01) | DRG 806 ==
LOC: WFO 10:19 → FBP 10:32 → WFO 11:20 → FBP 11:21
PROVIDERS: ADMIT Nurse Practitioner Obstetrics & Gynecology; ATTEND Nurse Practitioner Obstetrics & Gynecology
PROC: 3E033VJ Introduction of Other Hormone into Peripheral Vein, Percutaneous Approach (ICD-10-PCS; 2018-12-27)
PROC: 10D07Z6 Extraction of Products of Conception, Vacuum, Via Natural or Artificial Opening (ICD-10-PCS; principal; 2018-12-28)
PROC: 0HQ9XZZ Repair Perineum Skin, External Approach (ICD-10-PCS; 2018-12-28)
DX: O42.12 Full-term premature rupture of membranes, onset of labor more than 24 hours following rupture (principal); K51.90 Ulcerative colitis, unspecified, without complications; Z37.0 Single live birth; O99.62 Diseases of the digestive system complicating childbirth; O63.1 Prolonged second stage (of labor); O75.81 Maternal exhaustion complicating labor and delivery; O70.0 First degree perineal laceration during delivery; Z3A.39 39 weeks gestation of pregnancy
CPT/HCPCS: 36415; 84112; 85025; 99213; A9270; J7120

== ENCOUNTER 2020-11-26 08:00 | Outpatient (CLI) | payer BC, MEDICAID, OTHER | END 2020-11-26 23:59 | disposition home or self-care (01) | LOC: LAB.N 08:00 | PROVIDERS: ATTEND Nurse Practitioner | DX: R07.0 Pain in throat (principal); Z20.822 Contact with and (suspected) exposure to COVID-19 | CPT/HCPCS: 87070 ==

== ENCOUNTER 2020-11-28 16:11 | Emergency (ER) | payer BC, MEDICAID, OTHER ==
[2020-11-28 16:37] VITALS: BP 137/70
--- NOTE | 2020-11-28 17:32 | ED Physician Documentation ---
History of Present Illness - Stated complaint Stated Complaint: MILIAN - Chief complaint Chief Complaint: Heent - Additonal information Additional information: 30-year-old female presents the emergency department for evaluation of cough, congestion, sore throat and pressure behind her eyes. This began about 5 days ago. She has had 2 - rapid Covid test and a respiratory PCR that is pending from 48 hours ago. She is taken Tylenol and ibuprofen without relief. Was seen at walk-in clinic for similar 2 days ago She is not a diabetic. No history of tobacco use. Review of Systems Constitutional: denies: Fever, Chills, Myalgias Eyes: reports: Reviewed and negative Ears: denies: Loss of hearing Nose: reports: Rhinorrhea / runny nose, Congestion Throat: reports: Sore throat Cardiac: denies: Chest pain / pressure, Palpitations Respiratory: reports: Cough. denies: Dyspnea GI: denies: Abdominal Pain, Nausea, Vomiting : denies: Dysuria, Frequency, Hesitancy Skin: denies: Rash, Lesions Musculoskeletal: denies: Neck pain, Back pain PD PAST MEDICAL HISTORY - Past Medical History Past Medical History: Yes Cardiovascular: Murmur Respiratory: None GI: Chronic diarrhea, Ulcerative colitis, Other Psych: None Musculoskeletal: None - Past Surgical History Past Surgical History: No - Present Medications Home Medications: Ambulatory Orders Medication Instructions Recorded Confirmed No Known Home Medications 11/28/20 11/28/20 - Allergies Allergies/Adverse Reactions: Allergies Allergy/AdvReac Type Severity Reaction Status Date / Time cefaclor [From Ceclor] Allergy Mild Rash Verified 11/28/20 16:35 - Social History Does the pt smoke?: No Smoking Status: Never smoker Does the pt drink ETOH?: No Does the pt have substance abuse?: No - Immunizations Immunizations are current?: Yes - POLST Patient has POLST: No PD ED PE NORMAL - General General: Alert and oriented X 3, No acute distress - HEENT HEENT: PERRL, Ears normal, Pharynx benign, Other (Significant sinus pressure and congestion.) - Neck Neck: Supple, no meningeal sign, No adenopathy - Cardiac Cardiac: RRR, No murmur - Respiratory Respiratory: No respiratory distress, Clear bilaterally - Abdomen Abdomen: Normal bowel sounds, Soft, Non tender, Non distended Results - Vitals Vitals: Vital Signs - 24 hr 11/28/20 16:32 Temperature 37 C Heart Rate 97 Respiratory 16 Rate Blood Pressure 137/70 H O2 Saturation 99 Oxygen O2 Source Room air PD MEDICAL DECISION MAKING - ED course Complexity details: reviewed results, d/w patient ED course: This is a well-appearing 30-year-old female the presents the emergency department for evaluation of, cough cold congestion sinus pressure. The sinus pressure is her most pressing concern. ENT exam is essentially unremarkable. There are no fevers or worrisome vital sign abnormalities. She has unremarkable cardiopulmonary auscultation without hypoxia. Imaging deferred. I suspect she has a viral URI. COVID-19 screening is pending. I did recommend a few days of Sudafed as well as saline nasal rinses followed by Flonase. No antibiotics are levied or indicated at this time. Emergent worrisome return precautions were discussed. Departure - Departure Disposition: 01 Home, Self Care Clinical Impression: Upper respiratory infection Qualifiers: URI type: unspecified viral URI Qualified Code(s): J06.9 - Acute upper respiratory infection, unspecified Condition: Stable Record reviewed to determine appropriate education?: Yes Instructions: ED URI Ch Comments: Marissa you have an upper respiratory infection. This is most likely viral. Your Covid screening from 2 days ago is not yet resulted. We will notify you only if it is positive. It is okay for you to take a dose or 2 of Sudafed over the next 2 to 3 days. This will help with your congestion and headache. I do recommend that you do saline nasal rinses every day in the shower. This will help rinse your sinuses. Once out of the shower use Flonase nasal spray. The steroid and this will help reduce the congestion and prevent it from returning. Most viral upper respiratory infections will resolve after 7 to 10 days. If at any point you develop fevers higher than 103, have uncontrolled coughing, vomiting or severe chest pain then please return immediately to the ER for second evaluation
== END 2020-11-28 18:13 | disposition home or self-care (01) ==
LOC: ED 16:11
DX: J06.9 Acute upper respiratory infection, unspecified (principal)
CPT/HCPCS: 99281; 99284

== ENCOUNTER 2021-03-11 10:09 | Emergency (ER) | payer BC ==
[2021-03-11 10:43] LABS: BASOPHILS # (AUTO) 0.1 10^3/uL (0.0-0.1); BASOPHILS % (AUTO) 0.8 %; EOSINOPHILS % (AUTO) 0.3 %; HGB - HEMOGLOBIN 13.6 g/dL (12.0-16.0); LYMPHOCYTES # (AUTO) 0.4 10^3/uL (1.5-3.5); LYMPHOCYTES % (AUTO) 6.6 %; MEAN CORPUSCULAR VOLUME 88.1 fL (81.0-99.0); MONOCYTES # (AUTO) 0.3 10^3/uL (0.0-1.0); MONOCYTES % (AUTO) 4.5 %; NEUTROPHILS # (AUTO) 5.8 10^3/uL (1.5-6.6); NEUTROPHILS % (AUTO) 87.3 %; PLT - PLATELET COUNT 217 10^3/uL (130-450); RED BLOOD COUNT 4.54 10^6/uL (4.20-5.40); WHITE BLOOD COUNT 6.6 x10^3/uL (4.8-10.8)
[2021-03-11 10:51] VITALS: BP 112/70
[2021-03-11] MEDS ORDERED: KETOROLAC 30 MG/ML VIAL IVP STA (10:54)
[2021-03-11 10:55] LABS: ALBUMIN 3.9 g/dL (3.2-5.5); ALBUMIN/GLOBULIN RATIO 1.1 (1.0-2.2); BILIRUBIN,TOTAL 0.9 mg/dL (0.2-1.0); CALCIUM 8.6 mg/dL (8.5-10.3); CREATININE 0.7 mg/dL (0.4-1.0); TOTAL PROTEIN 7.3 g/dL (6.7-8.2)
[2021-03-11] MEDS ORDERED: SODIUM CHLORIDE 0.9% 1,000 ML IV STA (11:32)
[2021-03-11] MEDS ORDERED: ONDANSETRON 4 MG/2 ML VIAL IVP STA (11:33)
--- NOTE | 2021-03-11 11:35 | ED Physician Documentation ---
History of Present Illness - Stated complaint Stated Complaint: VOMITTING - Chief complaint Chief Complaint: Abd Pain - Additonal information Additional information: 30-year-old female presents emergency department for evaluation of 2 days of upper abdominal pain and uncontrolled nausea and vomiting. She denies any fevers. She states that she has been having some watery stools but has no history of colitis so this does not feel different to her. She denies that this is similar to her colitis flares. Nonbloody stools. No pertinent past surgical history. She takes no medications related to the colitis. Aminal pain is fairly persistent and not associated with eating or drinking. Reports this provider did his Bentyl 24 hours and she has kept any food or liquid down. Review of Systems Constitutional: denies: Fever, Chills Nose: reports: Reviewed and negative Throat: reports: Reviewed and negative Cardiac: reports: Reviewed and negative Respiratory: reports: Reviewed and negative GI: reports: Abdominal Pain, Nausea, Vomiting, Diarrhea. denies: Hematemesis, Bloody / black stool : reports: Reviewed and negative Skin: reports: Reviewed and negative Musculoskeletal: reports: Reviewed and negative Neurologic: reports: Reviewed and negative Psychiatric: reports: Reviewed and negative PD PAST MEDICAL HISTORY - Past Medical History Cardiovascular: Murmur Respiratory: None GI: Chronic diarrhea, Ulcerative colitis, Other Psych: None Musculoskeletal: None - Past Surgical History Past Surgical History: No - Present Medications Home Medications: Ambulatory Orders Medication Instructions Recorded Confirmed Ondansetron Odt [Zofran] 4 mg TL Q6H PRN #10 tablet 03/11/21 - Allergies Allergies/Adverse Reactions: Allergies Allergy/AdvReac Type Severity Reaction Status Date / Time cefaclor [From [facility]] Allergy Mild Rash Verified 03/11/21 10:26 - Social History Does the pt smoke?: No Smoking Status: Never smoker Does the pt drink ETOH?: No Does the pt have substance abuse?: No - Immunizations Immunizations are current?: Yes - POLST Patient has POLST: No PD ED PE NORMAL - General General: Alert and oriented X 3, No acute distress - HEENT HEENT: PERRL - Cardiac Cardiac: RRR, No murmur - Respiratory Respiratory: Clear bilaterally - Abdomen Abdomen: Normal bowel sounds, Soft, Non distended. No: Non tender (Mild upper abdominal tenderness. Negative McBurney's negative Zhu's. No guarding or rebound.) - Back Back: No spinal TTP - Derm Derm: Normal color, Warm and dry - Extremities Extremities: No deformity, No tenderness to palpate - Neuro Neuro: Alert and oriented X 3, wrong address clerk 2-12 intact Eye Opening: Spontaneous Motor: Obeys Commands Verbal: Oriented GCS Score: 15 - Psych Psych: Normal mood Results - Vitals Vitals: Vital Signs - 24 hr 03/11/21 03/11/21 10:21 10:50 Temperature 36.6 C 36.6 C Heart Rate 68 74 Respiratory 15 14 Rate Blood Pressure 113/74 112/70 O2 Saturation 99 100 Oxygen O2 Source Room air - Labs Labs: Laboratory Tests 03/11/21 03/11/21 10:36 10:36 WBC 6.6 RBC 4.54 Hgb 13.6 Hct 40.0 MCV 88.1 MCH 30.0 MCHC 34.0 RDW 13.0 Plt Count 217 MPV 11.0 H Neut # (Auto) 5.8 Lymph # (Auto) 0.4 L [place] # (Auto) 0.3 Eos # (Auto) 0.0 Baso # (Auto) 0.1 Absolute Nucleated RBC 0.00 Nucleated RBC % 0.0 Sodium 134 L Potassium 4.0 Chloride 101 Carbon Dioxide 23 Anion Gap 10.0 BUN 10 Creatinine 0.7 Estimated GFR (MDRD) 98 Glucose 101 H Calcium 8.6 Total Bilirubin 0.9 AST 50 H ALT 48 Alkaline Phosphatase 36 L Total Protein 7.3 Albumin 3.9 Globulin 3.4 Albumin/Globulin Ratio 1.1 Lipase 20 L - Rads (name of study) abd us Radiology: Final report received (Normal right upper quadrant abdominal ultrasound) PD MEDICAL DECISION MAKING - ED course Complexity details: reviewed results, re-evaluated patient, considered differential, d/w patient ED course: 30-year-old female presents emergency department for 2 days of upper abdominal pain and uncontrolled nausea and vomiting. Also having frequent watery stools. She does have a history of colitis but is not on any suppressive or management medication. All her output has been nonbloody. Screening labs show no significant leukocytosis. She does have a very mild AST elevation. On exam she had nonfocal upper abdominal tenderness. Negative Zhu's. Abdominal ultrasound did not reveal findings consistent with Naa cystitis. Patient was given Zofran here in the emergency department as well as IV fluids. Following this she was tolerating sips of clear liquids. Limited prescription for Zofran will be sent to the [facility] in [place]. Discussed that this likely represents a mild gastritis or gastroenteritis. I did encourage her to have close follow-up with her primary care doctor and consider long-term management of her colitis. Emergent return precautions were otherwise discussed. Departure - Departure Disposition: 01 Home, Self Care Clinical Impression: Upper abdominal pain, Nausea vomiting and diarrhea Condition: Stable Record reviewed to determine appropriate education?: Yes Instructions: ED Gastroenteritis Viral Follow-Up: Arturo Norris DO [Primary Care Provider] - Prescriptions: Ondansetron Odt [Zofran] 4 mg TL Q6H PRN #10 tablet PRN Reason: Nausea / Vomiting Comments: Marissa morand that you are feeling better. You were seen in the emergency department today because you have had a few days of upper abdominal pain as well as uncontrolled nausea, vomiting and diarrhea. Your screening labs do not show any acute worrisome abnormalities. The ultrasound that we did of your gallbladder did not show findings For gallstones or gallbladder inflammation. You were given some IV fluids here in the emergency department as well as Zofran and you are feeling better. I have sent a prescription for a limited amount of Zofran to the [facility] in [place]. Over the next 24 hours I encourage you to use the Zofran 2-3 times a day. Take frequent small sips of clear liquids and as you begin to feel better slowly advance your diet with bananas, rice, applesauce and then toast. If at any point you have suddenly severe or different abdominal pain, fevers higher than 102, black or bloody output then please return immediately to the ER. I do encourage you to discuss your colitis with your primary care doctor and determine if you would benefit from long-term suppressive management of this.
--- NOTE | 2021-03-11 12:09 | Ultrasound Report ---
PROCEDURE: Abdomen Limited INDICATIONS: Epigastric and right upper quadrant abdominal pain. TECHNIQUE: Real-time focused scanning was performed of the abdomen, with image documentation. COMPARISON: 07/10/2018 abdominal ultrasound FINDINGS: Normal size, echogenicity, echotexture, and contour of the liver. No focal hepatic mass. N o intrahepatic or extrahepatic biliary ductal dilatation. Normally distended gallbladder with no slud ge, gallstone, wall thickening, or pericholecystic fluid. Normal sonographic appearance of the pancre as. Right kidney is unremarkable with no shadowing calculus or hydronephrosis. IMPRESSION: Normal right upper quadrant abdominal ultrasound. Reviewed by: Bran Llyod MD on 03/11/2021 12:07 PM PST Approved by: Bran Lloyd MD on 03/11/2021 12:07 PM PST Station ID: [id number]
[2021-03-11 12:29] LABS: HCG,QUALITATIVE BLOOD NEGATIVE
[2021-03-11 13:09] LABS: BILIRUBIN,URINE NEGATIVE (NEGATIVE); GLUCOSE, URINE (UA) NEGATIVE (NEGATIVE); KETONES,URINE (UA) >=80 mg/dL (NEGATIVE); LEUKOCYTE ESTERASE, URINE NEGATIVE (NEGATIVE); NITRITE,URINE NEGATIVE (NEGATIVE); OCCULT BLOOD,URINE NEGATIVE (NEGATIVE); PROTEIN,URINE TRACE mg/dL (NEGATIVE); UROBILINOGEN,URINE 0.2 (NORMAL) E.U./dL (NORMAL)
[2021-03-11 13:12] LABS: CLARITY,URINE CLEAR (CLEAR)
[2021-03-11 13:14] LABS: HCG UR QUAL NEGATIVE
== END 2021-03-11 13:11 | disposition home or self-care (01) ==
LOC: ED 10:09
DX: R10.10 Upper abdominal pain, unspecified (principal); R11.2 Nausea with vomiting, unspecified; R19.7 Diarrhea, unspecified
CPT/HCPCS: 36415; 80053; 81001; 81003; 81025; 83690; 84703; 85025; 87086; 96374; 99284

== ENCOUNTER 2021-07-12 18:31 | Emergency (ER) | payer BC ==
[2021-07-12 18:54] LABS: BASOPHILS % (AUTO) 0.7 %; EOSINOPHILS % (AUTO) 0.2 %; HGB - HEMOGLOBIN 15.1 g/dL (12.0-16.0); LYMPHOCYTES # (AUTO) 0.5 10^3/uL (1.5-3.5); LYMPHOCYTES % (AUTO) 8.7 %; MEAN CORPUSCULAR HEMOGLOBIN 31.7 pg (27.0-31.0); MEAN CORPUSCULAR VOLUME 88.2 fL (81.0-99.0); MEAN PLATELET VOLUME 11.3 fL (7.9-10.8); MONOCYTES # (AUTO) 0.4 10^3/uL (0.0-1.0); MONOCYTES % (AUTO) 6.4 %; NEUTROPHILS % (AUTO) 83.5 %; PLT - PLATELET COUNT 193 10^3/uL (130-450); RED BLOOD COUNT 4.76 10^6/uL (4.20-5.40); RED CELL DISTRIBUTION WIDTH 12.1 % (12.0-15.0)
[2021-07-12 19:03] LABS: ALBUMIN 4.3 g/dL (3.2-5.5); ALBUMIN/GLOBULIN RATIO 1.3 (1.0-2.2); BILIRUBIN,TOTAL 0.5 mg/dL (0.2-1.0); CALCIUM 8.8 mg/dL (8.5-10.3); CREATININE 0.8 mg/dL (0.4-1.0); POTASSIUM 3.5 mmol/L (3.5-5.0); TOTAL PROTEIN 7.6 g/dL (6.7-8.2)
[2021-07-12] MEDS ORDERED: KETOROLAC 15 MG/ML VIAL IVP STA (19:11)
[2021-07-12] MEDS ORDERED: METOCLOPRAMIDE 10 MG/2 ML VIAL IVP STA (19:11)
[2021-07-12] MEDS ORDERED: SODIUM CHLORIDE 0.9% 1,000 ML IV STA ×2 (19:11→21:08)
--- NOTE | 2021-07-12 19:12 | ED Physician Documentation ---
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 She got suddenly sick at 10:00 last night with vomiting and diarrhea and the vomiting is stopped now but she is significant low back pain radiating up and out to the flanks. No fevers. No chance of . Review of Systems Ten Systems: 10 systems reviewed and negative Constitutional: reports: Chills, Sweats GI: reports: Nausea, Vomiting, Diarrhea PD PAST MEDICAL HISTORY - Past Medical History Cardiovascular: Murmur Respiratory: None Neuro: None Endocrine/Autoimmune: None GI: Chronic diarrhea, Ulcerative colitis, Other TONGUER: None : None HEENT: None Psych: None Musculoskeletal: None Derm: None - Past Surgical History Past Surgical History: No - Present Medications Home Medications: Ambulatory Orders Medication Instructions Recorded Confirmed HYDROcod/ACETAM 5/325 [[place] 5/325] 1 - 2 ea PO Q6H PRN #14 tablet 07/12/21 Ondansetron Odt [Zofran] 4 mg TL Q6H PRN #10 tablet 07/12/21 - Allergies Allergies/Adverse Reactions: Allergies Allergy/AdvReac Type Severity Reaction Status Date / Time cefaclor [From [facility]] Allergy Mild Rash Verified 07/12/21 18:34 - Social History Does the pt smoke?: No Smoking Status: Never smoker Does the pt drink ETOH?: No Does the pt have substance abuse?: No - Immunizations Immunizations are current?: Yes - POLST Patient has POLST: No PD ED PE NORMAL - Vitals Vital signs reviewed: Yes - General General: Alert and oriented X 3 (She appears uncomfortable and is laying right lateral decubitus) - Neck Neck: Supple, no meningeal sign, No bony TTP - Cardiac Cardiac: RRR - Respiratory Respiratory: No respiratory distress, Clear bilaterally - Abdomen Abdomen: Soft, Non tender, Other (Hyperactive bowel sounds) - Back Back: No CVA TTP, No spinal TTP - Derm Derm: Normal color, Warm and dry - Extremities Extremities: No edema, No calf tenderness / cord - Neuro Neuro: Alert and oriented X 3, Normal speech Results - Vitals Vitals: Vital Signs - 24 hr 07/12/21 07/12/21 07/12/21 18:34 18:37 20:37 Temperature 36.8 C 36.8 C Heart Rate 89 89 88 Respiratory 20 20 14 Rate Blood Pressure 109/54 L 109/54 L 106/54 L O2 Saturation 100 100 97 07/12/21 22:00 Temperature Heart Rate 78 Respiratory 14 Rate Blood Pressure 117/65 O2 Saturation 99 Oxygen O2 Source Room air - Labs Labs: Laboratory Tests 07/12/21 07/12/21 07/12/21 18:45 18:45 21:56 WBC 6.0 RBC 4.76 Hgb 15.1 Hct 42.0 MCV 88.2 MCH 31.7 H MCHC 36.0 RDW 12.1 Plt Count 193 MPV 11.3 H Neut # (Auto) 5.0 Lymph # (Auto) 0.5 L Gonzales # (Auto) 0.4 Eos # (Auto) 0.0 Baso # (Auto) 0.0 Absolute Nucleated RBC 0.00 Nucleated RBC % 0.0 Sodium 137 Potassium 3.5 Chloride 100 L Carbon Dioxide 25 Anion Gap 12.0 BUN 12 Creatinine 0.8 Estimated GFR (MDRD) 84 L Glucose 137 H Calcium 8.8 Total Bilirubin 0.5 AST 23 ALT 20 Alkaline Phosphatase 31 L Total Protein 7.6 Albumin 4.3 Globulin 3.3 Albumin/Globulin Ratio 1.3 Lipase 22 Urine Color YELLOW Urine Clarity CLEAR Urine pH 6.0 Ur Specific Mun[place] >=1.030 H Urine Protein 30 H Urine Glucose (UA) NEGATIVE Urine Ketones TRACE Urine Occult Blood NEGATIVE Urine Nitrite NEGATIVE Urine Bilirubin NEGATIVE Urine Urobilinogen 0.2 (NORMAL) Ur Leukocyte Esterase NEGATIVE Urine RBC 0-5 Urine WBC 0-3 Ur Squamous Epith Cells FEW Squamous Urine Bacteria Few Urine Mucus Marked Strands Ur Microscopic Review INDICATED Urine Culture Comments NOT INDICATED Urine HCG, Qual NEGATIVE PD MEDICAL DECISION MAKING - ED course ED course: 31yo female with exposure to norovirus with gastroenteritis but also prominent back pain. Abd exam benign. Labs looking ok. Significant delay to dispo d/t lack of ability for pt to provide UA. But pt feeling better p tx. Departure - Departure Disposition: 01 Home, Self Care Clinical Impression: Gastroenteritis, Back pain Condition: Good Instructions: ED Gastroenteritis Viral Prescriptions: HYDROcod/ACETAM 5/325 [[place] 5/325] 1 - 2 ea PO Q6H PRN #14 tablet PRN Reason: Pain Ondansetron Odt [Zofran] 4 mg TL Q6H PRN #10 tablet PRN Reason: Nausea / Vomiting Comments: Thank you for allowing us to care for you today at [facility]. Prescription sent electronically to [facility] All the testing performed in the emergency department including your blood work and urine analysis were all very reassuringPlease drink plenty of fluids and get plenty of rest over the course of the next few days. I have sent some medication for nausea and pain to your preferred pharmacy. Please take these as directed. Please do make a follow-up appointment with your primary care doctor soon as possible. If it anytime you develop any new or worsening symptoms please not hesitate to return to the emergency department.. Forms: Activity restrictions Discharge Date/Time: 07/12/21 23:00
[2021-07-12] MEDS ORDERED: HYDROmorphone 1 MG/ML CARPUJECT IVP STA (20:04)
[2021-07-12 22:02] LABS: GLUCOSE, URINE (UA) NEGATIVE (NEGATIVE); KETONES,URINE (UA) TRACE mg/dL (NEGATIVE); LEUKOCYTE ESTERASE, URINE NEGATIVE (NEGATIVE); NITRITE,URINE NEGATIVE (NEGATIVE); OCCULT BLOOD,URINE NEGATIVE (NEGATIVE); PROTEIN,URINE 30 mg/dL (NEGATIVE); UROBILINOGEN,URINE 0.2 (NORMAL) E.U./dL (NORMAL)
[2021-07-12 22:03] VITALS: BP 117/65
[2021-07-12 22:05] LABS: BILIRUBIN,URINE NEGATIVE (NEGATIVE); ICTOTEST,URINE NEGATIVE
[2021-07-12 22:06] LABS: CLARITY,URINE CLEAR (CLEAR); HCG UR QUAL NEGATIVE
[2021-07-12 22:19] LABS: BACTERIA,URINE Few /HPF (None Seen); MUCUS,URINE Marked Strands; RBC,URINE 0-5 /HPF (0-5); SQUAMOUS EPITHELIAL CELL,UR FEW Squamous (<= Few); WBC,URINE 0-3 /HPF (0-5)
[2021-07-12] MEDS ORDERED: ONDANSETRON ODT 4 MG Prepack 2 TL PRN (22:46)
[2021-07-12] MEDS ORDERED: HYDROcod/ACET 5/325 Prepack 4 PO STA (22:46)
--- NOTE | 2021-07-12 22:50 | ED Physician Documentation ---
ED Addendum - Addendum Addendum: 07/12/21 22:49 Patient received a signout from off going physician, please see their d ocumentation for further detail. Labs and urine analysis reviewed. Patient evaluated independently at bedside. Found to be resting comfortably and in no acute distress. Will discharge at this time for likely viral gastroenteritis. Encouraged follow-up with primary care, hydration and/or return to the emergency department as needed for new or worsening symptoms. Final clinical impression, viral gastroenteritis.
== END 2021-07-12 23:00 | disposition home or self-care (01) ==
LOC: ED 18:31
DX: A08.4 Viral intestinal infection, unspecified (principal)
CPT/HCPCS: 36415; 80053; 81001; 81025; 83690; 85025; 96374; 96375; 99283; 99284; J1170; J2765; 81003; 87086

== ENCOUNTER 2022-02-20 07:07 | Outpatient (CLI) | payer BC ==
[2022-02-20 12:16] LABS: BASOPHILS # (AUTO) 0.1 10^3/uL (0.0-0.1); BASOPHILS % (AUTO) 2.1 %; EOSINOPHILS # (AUTO) 0.1 10^3/uL (0.0-0.7); HCT - HEMATOCRIT 40.2 % (37.0-47.0); HGB - HEMOGLOBIN 13.9 g/dL (12.0-16.0); LYMPHOCYTES # (AUTO) 1.4 10^3/uL (1.5-3.5); LYMPHOCYTES % (AUTO) 41.8 %; MEAN CORPUSCULAR HEMOGLOBIN 30.2 pg (27.0-31.0); MEAN CORPUSCULAR HGB CONC 34.6 g/dL (32.0-36.0); MEAN CORPUSCULAR VOLUME 87.4 fL (81.0-99.0); MEAN PLATELET VOLUME 11.4 fL (7.9-10.8); MONOCYTES # (AUTO) 0.3 10^3/uL (0.0-1.0); MONOCYTES % (AUTO) 8.8 %; NEUTROPHILS # (AUTO) 1.5 10^3/uL (1.5-6.6); NEUTROPHILS % (AUTO) 44.3 %; PLT - PLATELET COUNT 244 10^3/uL (130-450); RED CELL DISTRIBUTION WIDTH 12.5 % (12.0-15.0); WHITE BLOOD COUNT 3.3 x10^3/uL (4.8-10.8)
[2022-02-20 12:41] LABS: ALBUMIN 3.9 g/dL (3.2-5.5); ALBUMIN/GLOBULIN RATIO 1.2 (1.0-2.2); ALKALINE PHOSPHATASE 37 IU/L (42-121); ALT ALANINE AMINOTRANSFERASE 20 IU/L (10-60); AST ASPARTATE AMINOTRANSFERASE 21 IU/L (10-42); BILIRUBIN,TOTAL 0.7 mg/dL (0.2-1.0); BUN - BLOOD UREA NITROGEN 11 mg/dL (6-20); CALCIUM 9.4 mg/dL (8.5-10.3); CARBON DIOXIDE - CO2 28 mmol/L (21-32); CHLORIDE 103 mmol/L (101-111); CHOL/HDL RATIO 3.1 (<4.4); CHOLESTEROL 191 mg/dL; CREATININE 0.6 mg/dL (0.4-1.0); GFR - MDRD 117 (>89); GLUCOSE 100 mg/dL (70-100); HDL CHOLESTEROL 61 mg/dL; POTASSIUM 4.1 mmol/L (3.5-5.0); SODIUM 138 mmol/L (135-145); TOTAL PROTEIN 7.2 g/dL (6.7-8.2); TRIGLYCERIDES 38 mg/dL
[2022-02-20 12:49] LABS: THYROID STIMULATING HORMONE 2.96 uIU/mL (0.34-5.60)
== END 2022-02-20 07:08 | disposition home or self-care (01) ==
LOC: LAB.N 07:07
PROVIDERS: ATTEND Physician Assistant
DX: D50.9 Iron deficiency anemia, unspecified (principal); G24.5 Blepharospasm; Z13.220 Encounter for screening for lipoid disorders
CPT/HCPCS: 36415; 80053; 80061; 83721; 83735; 84443; 85025; 85651

== ENCOUNTER 2022-03-09 13:07 | Outpatient (CLI) | payer BC | END 2022-03-09 13:08 | disposition home or self-care (01) | LOC: LAB 13:07 | PROVIDERS: ATTEND Physician Assistant | DX: R25.8 Other abnormal involuntary movements (principal) | CPT/HCPCS: 81599 ==

== ENCOUNTER 2022-04-15 09:22 | Outpatient (CLI) | payer BC ==
--- NOTE | 2022-04-15 11:22 | XRAY Report ---
PROCEDURE: Hip w/Pelvis 2-3V RT INDICATIONS: RIGHT HIP PAIN TECHNIQUE: AP pelvis with lateral view(s) of the right hip(s). COMPARISON: None. FINDINGS: Bones: No fractures or dislocations. Pelvic ring appears intact. No suspicious bony lesions. No d efinite hip joint space narrowing. Soft tissues: The visualized bowel gas pattern is normal. No suspicious soft tissue calcifications. IMPRESSION: No acute osseous abnormality. If symptoms persist, follow-up radiographs and/or CT or MRI may be help ful for further evaluation. Reviewed by: Marty Esteban MD on 04/15/2022 11:20 AM [facility] Approved by: Marty Esteban MD on 04/15/2022 11:20 AM PST Station ID: [id number]
== END 2022-04-15 09:23 | disposition home or self-care (01) ==
LOC: DI 09:22
PROVIDERS: ATTEND Physician Assistant
DX: M25.551 Pain in right hip (principal)

== ENCOUNTER 2023-09-15 07:09 | Outpatient (CLI) | payer BC ==
[2023-09-15 11:56] LABS: BASOPHILS # (AUTO) 0.1 10^3/uL (0.0-0.1); BASOPHILS % (AUTO) 1.5 %; EOSINOPHILS # (AUTO) 0.1 10^3/uL (0.0-0.7); HCT - HEMATOCRIT 40.2 % (37.0-47.0); LYMPHOCYTES # (AUTO) 1.6 10^3/uL (1.5-3.5); LYMPHOCYTES % (AUTO) 38.8 %; MEAN CORPUSCULAR HEMOGLOBIN 31.7 pg (27.0-31.0); MEAN CORPUSCULAR HGB CONC 34.8 g/dL (32.0-36.0); MEAN PLATELET VOLUME 11.2 fL (7.9-10.8); MONOCYTES # (AUTO) 0.3 10^3/uL (0.0-1.0); MONOCYTES % (AUTO) 7.6 %; NEUTROPHILS # (AUTO) 2.1 10^3/uL (1.5-6.6); NEUTROPHILS % (AUTO) 49.9 %; PLT - PLATELET COUNT 278 10^3/uL (130-450); RED BLOOD COUNT 4.42 10^6/uL (4.20-5.40); RED CELL DISTRIBUTION WIDTH 12.6 % (12.0-15.0); WHITE BLOOD COUNT 4.1 x10^3/uL (4.8-10.8)
[2023-09-15 12:15] LABS: ALBUMIN 4.5 g/dL (3.2-5.5); ALBUMIN/GLOBULIN RATIO 1.8 (1.0-2.2); ALKALINE PHOSPHATASE 38 IU/L (42-121); ALT ALANINE AMINOTRANSFERASE 19 IU/L (10-60); AST ASPARTATE AMINOTRANSFERASE 28 IU/L (10-42); BILIRUBIN,TOTAL 0.6 mg/dL (0.2-1.0); BUN - BLOOD UREA NITROGEN 19 mg/dL (6-20); CALCIUM 9.7 mg/dL (8.5-10.3); CARBON DIOXIDE - CO2 30 mmol/L (21-32); CHLORIDE 104 mmol/L (101-111); CHOL/HDL RATIO 2.3 (<4.4); CHOLESTEROL 167 mg/dL; CREATININE 0.7 mg/dL (0.6-1.3); GFR - MDRD 96 (>89); GLUCOSE 90 mg/dL (74-104); HDL CHOLESTEROL 73 mg/dL; LDL CHOLESTEROL,CALCULATED 84 mg/dL; LDL/HDL RATIO 1.2 (<4.4); POTASSIUM 4.4 mmol/L (3.5-4.5); SODIUM 138 mmol/L (135-145); TRIGLYCERIDES 50 mg/dL (48-352); VLDL CHOLESTEROL 10 mg/dL
[2023-09-15 12:23] LABS: THYROID STIMULATING HORMONE 1.55 uIU/mL (0.34-5.60)
== END 2023-09-15 07:10 | disposition home or self-care (01) ==
LOC: LAB.N 07:09
PROVIDERS: ATTEND Physician Assistant
DX: G24.5 Blepharospasm (principal); Z13.9 Encounter for screening, unspecified
CPT/HCPCS: 36415; 80053; 80061; 83721; 83735; 84443; 85025